=== PATIENT | male | born 1935 | race African-American/Black ===

== ENCOUNTER 2021-11-13 00:30 | Emergency (ER) | payer OTHER ==
[~2021-11-13] VITALS: Ht 182.9 cm; Wt 82.0 kg
[2021-11-13 01:23] LABS: BASOPHILS % 0.3 % (0.0-2.0); EOSINOPHILS % 2.7 % (0.0-5.0); HEMATOCRIT. 33.2 % (42.0-52.0); HEMOGLOBIN. 10.7 g/dL (14.0-18.0); LYMPHOCYTES % 14.8 % (20.0-50.0); MEAN CORPUSCULAR HEMOGLOBIN 28.6 pg (28.0-32.0); MEAN CORPUSCULAR VOLUME 88.6 fL (80.0-94.0); MEAN PLATELET VOLUME 7.4 fl (7.4-10.4); MONOCYTES % 7.6 % (2.0-8.0); NEUTROPHILS % 74.6 % (40.0-76.0); PLATELET 240 x1000/uL (130-400); RED BLOOD CELL COUNT 3.75 mill/uL (4.7-6.1)
[2021-11-13 01:27] LABS: CHLORIDE 100 mEq/L (98-107)
[2021-11-13 02:43] LABS: CLARITY URINE CLEAR (CLEAR); COLOR URINE YELLOW (YELLOW); KETONES URINE NEGATIVE (NEGATIVE); LEUKOCYTE ESTERASE URINE 3+ (NEGATIVE); NITRITE URINE NEGATIVE (NEGATIVE); OCCULT BLOOD URINE 3+ (NEGATIVE); PROTEIN URINE 2+ (NEGATIVE); SPECIFIC GRAVITY URINE 1.011 (1.005-1.030); UROBILINOGEN URINE 0.2 E.U./dL (0.2-1.0)
[2021-11-13] MEDS ORDERED: CEPHALEXIN 250MG CAPSULE PO NR (04:00)
[2021-11-13] MEDS ORDERED: CEPH500C2 MT (04:30)
[2021-11-13] MEDS ORDERED: DEXTROSE 50% WATER 50ML SYRINGE IV ONE (04:45)
[2021-11-13 07:08] VITALS: BP 131/65
== END 2021-11-13 07:12 | disposition home or self-care (01) ==
LOC: ER 00:30
DX: N39.0 Urinary tract infection, site not specified (principal); E11.649 Type 2 diabetes mellitus with hypoglycemia without coma; J44.9 Chronic obstructive pulmonary disease, unspecified; I10 Essential (primary) hypertension; Z95.0 Presence of cardiac pacemaker; Z91.041 Radiographic dye allergy status
CPT/HCPCS: 36415; 80053; 81003; 82962; 84484; 85025; 99284